=== PATIENT | male | born 1995 | race American Indian/Alaskan Native ===

== ENCOUNTER 2019-01-07 20:58 | Emergency (ER) | payer OTHER ==
--- NOTE | 2019-01-07 21:14 | Emergency Department Report ---
Chief Complaint: Abdominal Pain Stated Complaint: ABDOMINAL PAIN Time Seen by Provider: 01/07/19 21:12 - HPI History of Present Illness: This is a 23 y.o. male that presents with abdominal pain since this morning. He haven't taken anything for symptom relief. Denies n/v/d. - Exam Vital Signs: Vital Signs 01/07/19 21:08 Temperature 98.7 F Pulse Rate 98 H Respiratory 18 Rate Blood Pressure 127/77 O2 Sat by Pulse 96 Oximetry MSE screening note: Focused history and physical exam performed. Due to findings the following was ordered: Labs ACC for further evaluation. ED Disposition for MSE Condition: Stable
[2019-01-07 21:57] LABS: Basophils # (Auto) 0.1 K/mm3 (0.0-0.1); Basophils % (Auto) 0.8 % (0.0-1.8); Eosinophils # (Auto) 0.2 K/mm3 (0.0-0.4); Eosinophils % (Auto) 2.3 % (0.0-4.3); Hematocrit 43.5 % (35.5-45.6); Hemoglobin 14.3 gm/dl (11.8-15.2); Lymphocytes # (Auto) 2.2 K/mm3 (1.2-5.4); Lymphocytes % (Auto) 32.2 % (13.4-35.0); Mean Corpuscular HGB Conc 33 % (32-34); Mean Corpuscular Volume 83 fl (84-94); Monocytes # (Auto) 0.5 K/mm3 (0.0-0.8); Monocytes % (Auto) 7.3 % (0.0-7.3); Platelet Count 187 K/mm3 (140-440); Red Blood Count 5.26 M/mm3 (3.65-5.03); Red Cell Distribution Width 13.5 % (13.2-15.2)
[2019-01-07 22:04] LABS: Alanine Aminotransferase 18 units/L (7-56); Albumin 4.5 g/dL (3.9-5); BUN/Creatinine Ratio 10; Blood Urea Nitrogen 9 mg/dL (9-20); Calcium 9.2 mg/dL (8.4-10.2); Hemolysis Index 9
--- NOTE | 2019-01-07 22:35 | Emergency Department Report ---
ED Abdominal Pain HPI - General Chief Complaint: Abdominal Pain Stated Complaint: ABDOMINAL PAIN Time Seen by Provider: 01/07/19 21:09 Source: patient Mode of arrival: Ambulatory Limitations: No Limitations - History of Present Illness Initial Comments: Patient is a 23-year-old male that presents emergency room with complaints of abdominal pain. Patient states his abdominal pain is resolved at this time. Patient states his abdominal pain was a 6 out of 10. He states he abdominal pain was in the epigastric region. Patient states he ate chicken from [employer] last night he thinks irritating his stomach. Patient states he had some nausea without vomiting. Patient denies fever and chills. Patient denies changes in bowel movement. Patient denies chest pain. Patient denies any pain at this time. MD Complaint: abdominal pain -: Sudden Location: epigastric Radiation: none Migration to: no migration Severity scale (0 -10): 6 Quality: burning Consistency: now resolved Improves With: eating, rest Worsens With: movement Associated Symptoms: nausea. denies: vomiting, diarrhea, fever, chills, constipation, dysuria, hematemesis, hematochezia, melena, hematuria, anorexia, syncope - Related Data Previous Rx's Medication Instructions Recorded Last Taken Type Blood Sugar Diagnostic [Test 1 each MC DAILY #1 box 10/08/18 Unknown Rx Strips] Fluconazole [Diflucan] 150 mg PO ONCE #2 tablet 10/08/18 Unknown Rx Nystatin 5 ml PO QID 14 Days oral.susp 10/08/18 Unknown Rx metFORMIN [Glucophage] 500 mg PO BID #60 tablet 10/08/18 Unknown Rx glipiZIDE [Glipizide] 5 mg PO DAILY #15 tablet 01/08/19 Unknown Rx Allergies Allergy/AdvReac Type Severity Reaction Status Date / Time No Known Allergies Allergy Verified 01/07/19 21:34 ED Review of Systems ROS: Stated complaint: ABDOMINAL PAIN Other details as noted in HPI Constitutional: denies: chills, fever Eyes: denies: eye pain, eye discharge, vision change ENT: denies: ear pain, throat pain Respiratory: denies: cough, shortness of breath, wheezing Cardiovascular: denies: chest pain, palpitations Endocrine: no symptoms reported Gastrointestinal: abdominal pain, nausea. denies: vomiting, diarrhea Genitourinary: denies: urgency, dysuria Musculoskeletal: denies: back pain, joint swelling, arthralgia Skin: denies: rash, lesions Neurological: denies: headache, weakness, paresthesias Psychiatric: denies: anxiety, depression Hematological/Lymphatic: denies: easy bleeding, easy bruising ED Past Medical Hx - Past Medical History Previous Medical History?: Yes Hx Diabetes: Yes - Surgical History Past Surgical History?: No - Family History Family history: no significant - Social History Smoking Status: Never Smoker Substance Use Type: None - Medications Home Medications: Home Medications Medication Instructions Recorded Confirmed Last Taken Type Blood Sugar Diagnostic [Test 1 each MC DAILY #1 box 10/08/18 Unknown Rx Strips] Fluconazole [Diflucan] 150 mg PO ONCE #2 tablet 10/08/18 Unknown Rx Nystatin 5 ml PO QID 14 Days oral.susp 10/08/18 Unknown Rx metFORMIN [Glucophage] 500 mg PO BID #60 tablet 10/08/18 Unknown Rx glipiZIDE [Glipizide] 5 mg PO DAILY #15 tablet 01/08/19 Unknown Rx ED Physical Exam - General Limitations: No Limitations General appearance: alert, in no apparent distress - Head Head exam: Present: atraumatic, normocephalic - Eye Eye exam: Present: normal appearance - ENT ENT exam: Present: mucous membranes moist - Neck Neck exam: Present: normal inspection - Respiratory Respiratory exam: Present: normal lung sounds bilaterally. Absent: respiratory distress, wheezes, rales, rhonchi - Cardiovascular Cardiovascular Exam: Present: regular rate, normal rhythm. Absent: systolic murmur, diastolic murmur, rubs, gallop - GI/Abdominal GI/Abdominal exam: Present: soft, normal bowel sounds. Absent: distended, tenderness, guarding, rebound, rigid - Rectal Rectal exam: Present: deferred - Extremities Exam Extremities exam: Present: normal inspection - Back Exam Back exam: Present: normal inspection - Neurological Exam Neurological exam: Present: alert, oriented X3 - Psychiatric Psychiatric exam: Present: normal affect, normal mood - Skin Skin exam: Present: warm, dry, intact, normal color. Absent: rash ED Course Vital Signs 01/07/19 21:08 Temperature 98.7 F Pulse Rate 98 H Respiratory 18 Rate Blood Pressure 127/77 O2 Sat by Pulse 96 Oximetry - Reevaluation(s) Reevaluation #1: Initial evaluation done. Patient sugar extremely high. We will recheck the patient's blood sugar. His abdominal pain has resolved. Patient's clinical findings are consistent with gastritis. 01/07/19 22:35 Discussed all results with patient. Discussed diabetes patient. Patient states he is feeling better. Patient will be given glipizide 5 mg as a new prescription to go along with his metformin. Patient states he has metformin. Patient given discharge instructions. Patient voiced understanding of discharge instructions. 01/08/19 00:40 ED Medical Decision Making - Lab Data Result diagrams: 01/07/19 21:31 01/07/19 21:31 - Medical Decision Making Patient is a 23-year-old male Emergency room with epigastric pain that resolved prior to me seeing the patient. Patient's epigastric pain is most likely secondary to gastritis. Patient also found to have hyperglycemia. Patient states he has not been controlling his diabetes. Patient has metformin and has been taking his metformin. Patient will be given glipizide 5 mg to start. Patient labs unremarkable except for pseudohyponatremia. Patient given saline and IV insulin and his sugar improved. Discussed discharged and follow-up instructions with patient. Patient voiced understanding. Patient encouraged to monitor sugar. - Differential Diagnosis gastritis. epigastritis. high sugar. Critical care attestation.: If time is entered above; I have spent that time in minutes in the direct care of this critically ill patient, excluding procedure time. ED Disposition Clinical Impression: Hyperglycemia Gastritis Qualifiers: Gastritis type: unspecified gastritis Chronicity: acute Gastritis bleeding: without bleeding Qualified Code(s): K29.00 - Acute gastritis without bleeding Abdominal pain Qualifiers: Abdominal location: epigastric Qualified Code(s): R10.13 - Epigastric pain Uncontrolled diabetes mellitus Qualifiers: Diabetes mellitus type: type 2 Glycemic state: with hyperglycemia Qualified Code(s): E11.65 - Type 2 diabetes mellitus with hyperglycemia Disposition: DC-01 TO HOME OR SELFCARE Is pt being admited?: No Does the pt Need Aspirin: No Condition: Stable Instructions: Gastritis (ED), Diet for Ulcers and Gastritis (ED), Diabetes Mellitus Type 2 in Adults (ED), Acute Abdominal Pain (ED), Diabetic Hyperglycemia (ED) Additional Instructions: Patient to follow-up with primary care in 2-3 days. Patient to follow up with accounting coordinator in 2-3 days. Patient to return to ER if condition worsens. Patient to either reflux diet. Patient increase water. Patient to take Tylenol when necessary for pain. Patient eat a diabetic diet. Prescriptions: glipiZIDE [Glipizide] 5 mg PO DAILY #15 tablet Time of Disposition: 00:49
[2019-01-07] MEDS ORDERED: NACL 0.9% 1000 ML 2,000 ML ONE (23:10)
[2019-01-07 23:33] LABS: Bilirubin,Urine NEG (Negative); Blood,Urine NEG (Negative); Color,Urine Yellow (Yellow); Protein,Urine <15 mg/dL mg/dL (Negative); Urobilinogen,Urine < 2.0 mg/dL (<2.0)
[2019-01-07 23:38] LABS: RBC,Urine < 1.0 /HPF (0.0-6.0)
[2019-01-07] MEDS ORDERED: HumuLIN R SUB-Q ONE (23:40)
[2019-01-07] MEDS ORDERED: HumuLIN R IV ONE (23:41)
[2019-01-07] MEDS ORDERED: NACL 0.9% 1000 ML 1,000 ML IV ONE (23:41)
[2019-01-08] MEDS ORDERED: NACL 0.9% 1000 ML 1,000 ML IV ONE (00:25)
[2019-01-08 01:55] VITALS: BP 122/84
== END 2019-01-08 01:00 | disposition home or self-care (01) ==
LOC: ED 20:58
DX: K29.00 Acute gastritis without bleeding (principal); E11.65 Type 2 diabetes mellitus with hyperglycemia
CPT/HCPCS: 36415; 80053; 81001; 82962; 85025; 96361; 96374; 99283; J7030; J1815

== ENCOUNTER 2019-10-22 14:52 | Emergency (ER) | payer SELFPAY | END 2019-10-22 15:00 | disposition left against medical advice (07) | LOC: ED 14:52 | DX: Z11.3 Encounter for screening for infections with a predominantly sexual mode of transmission (principal); Z53.21 Procedure and treatment not carried out due to patient leaving prior to being seen by health care provider ==